=== PATIENT | female | born 1955 | race Caucasian/White ===

== ENCOUNTER 2020-11-13 23:21 | Emergency (ER) | payer MEDICARE, SELFPAY ==
[2020-11-13 23:33] VITALS: BP 98/69; PULSE 125; RESP 22; TEMP 37.4; O2SAT 96; BMI 23.0
--- NOTE | 2020-11-13 23:51 | XRR_ITS ---
PROCEDURE INFORMATION: Exam: XR Chest Exam date and time: 11/13/2020 11:51 PM Age: 65 years old Clinical indication: Cough and shortness of breath; Additional info: SOB, covid precautions TECHNIQUE: Imaging protocol: XR of the chest. Views: 1 view. COMPARISON: No relevant prior studies available. FINDINGS: Lungs: Calcified left hilar nodes and/or mediastinal nodes and/or lung granulomas consistent with old granulomatous disease. Moderately hyperaerated lungs consistent with deep inspiratory effort vs significant reactive airway disease vs moderate COPD . Proximal mild bibasilar opacities most consistent with mild bibasilar pneumonia, left greater than right. Pleural spaces: Unremarkable. No pleural effusion. No pneumothorax. Heart/Mediastinum: Unremarkable. No cardiomegaly. Bones/joints: Unremarkable. XR/XR chest 1V portable [id number] IMPRESSION: 1. Moderately hyperaerated lungs consistent with deep inspiratory effort vs significant reactive airway disease vs moderate COPD . 2. Proximal mild bibasilar opacities most consistent with mild bibasilar pneumonia, left greater than right.
--- NOTE | 2020-11-13 23:54 | ED_ITS ---
HPI - COVID General: Chief Complaint: COVID symptoms Stated Complaint: N\fever\Cough\SOB\ Time Seen by Provider: 11/13/20 23:42 Triage information: Has fever, cough or shortness of breath . Exposure to COVID + person last 14 days History of Present Illness: HPI Narrative: Patient presents with Covid symptoms x8 days. Has had positive Covid contacts. MD complaint: reported COVID exposure and has COVID symptoms Prior covid testing: no COVID 19 common symptoms: positive fever(s), chills, cough, dyspnea, body aches, loss of sense of smell and/or taste and nausea; negative headache(s), throat pain or nasal congestion COVID 19 other sytmptoms: negative chest pain Onset (ago): day(s) (8) Severity: mild Pertinent comorbid conditions: tobacco use/smoking Treatment prior to arrival: other (Natural treatments) COVID Results: SARS-CoV-2 Antigen (Rapid) Negative (Negative) 11/13/20 23:50 11/13/20 Review of Systems Const: Reports: fever(s), chills and body aches Eyes: Denies: change in vision or blurry vision ENMT: Denies: throat pain or nasal congestion Card: Denies: chest pain or dyspnea on exertion Resp: Reports: dyspnea GI: Reports: nausea Musc: Denies: extremity pain Skin/Breast: Denies: rash Neuro: Denies: headache(s) Psych: Denies: anxiety or depression Sebas/Lymph: Denies: easy bruising Physical Exam Const: COMMON NORMALS: no acute distress, average body habitus and patient oriented x3 HENMT: COMMON NORMALS: normocephalic HEAD & SCALP: normal to inspection and normocephalic FACE & SINUS: normal facial exam Eye: COMMON NORMALS: conjunctivae normal GENERAL EYE: appearance normal, both eyes and all related structures CONJUNCTIVA: Yes conjunctivae normal Neck/C-Spine: COMMON NORMALS: no JVD Chest: COMMONS NORMALS: normal inspection of the chest Resp: EFFORT & INSPECTION: Yes able to speak in complete sentences, Yes tachypneic and Yes pursed lip breathing Cardio: COMMON NORMALS: no JVD and regular rhythm RATE: tachycardic RHYTHM: regular rhythm GI: COMMON NORMALS: Normal to inspection, nondistended, normoactive bowel sounds present Extremity: COMMON NORMALS: normal to inspection and full ROM Neuro: COMMON NORMALS: patient oriented x3 Course Vital Signs: Vital signs: Vital Signs Temperature 99.3 F 11/13/20 23:33 Pulse Rate 125 H 11/13/20 23:33 Respiratory Rate 22 H 11/13/20 23:33 Blood Pressure 98/69 11/13/20 23:33 Pulse Oximetry 94 11/14/20 00:02 MDM - COVID MDM Narrative: Medical decision making narrative: Patient is Covid negative. Patient does not appear septic. Temperature 99.3. White count 6.4. X-ray reveals pneumonia. Patient is a smoker. Labs show white count is normal. Patient given antibiotic breathing treatment and steroid sent home with prescription for this follow-up with your primary care provider Monday or Monday. Encouraged to quit smoking. Lab Data: Labs: Lab Results 11/13/20 11/13/20 23:46 23:50 WBC 6.7 10^3/uL 10^3/ uL (4.0-10.0) RBC 4.73 10^6/uL 10^6 /uL (4.1-5.3) Hgb 14.5 g/dL g/dL (11.5-15.3) Hct 42.8 % % (37.0-47.0) MCV 90.5 fl fl (81-99) MCH 30.7 pg pg (28.0-34.0) MCHC 33.9 g/dL g/dL (30.0-36.0) RDW 13.0 % % (12.1-15.1) Plt Count 136 10^3/cmm 10^3 /cmm (130-400) MPV 11.7 fL H fL (7.4-10.4) Neut % (Auto) 55.3 % % Lymph % (Auto) 40.5 % % [place] % (Auto) 3.6 % % Eos % (Auto) 0.0 % % Baso % (Auto) 0.3 % % Neut # (Auto) 3.72 10^3/uL 10^3 /uL (1.8-7.7) Lymph # (Auto) 2.7 10^3/uL 10^3/ uL (0.8-4.8) [place] # (Auto) 0.2 10^3/uL 10^3/ uL (0.2-0.9) Eos # (Auto) 0.0 10^3/uL 10^3/ uL (0.0-0.8) Baso # (Auto) 0.0 10^3/uL 10^3/ uL (0.0-0.1) Nucleated RBC % (a uto) 0 % % Nucleated RBCs # 0.0 /100WBC /100W BC SARS-CoV-2 Ag (Rap id) Negative (Negative) COVID Results: SARS-CoV-2 Antigen (Rapid) Negative (Negative) 11/13/20 23:50 11/13/20 Discharge Plan Discharge Patient Disposition: Home Clinical Impression: Tobacco dependence Pneumonia Qualifiers: Pneumonia type: due to unspecified organism Laterality: bilateral Lung location: lower lobe of lung Qualified Code(s): J18.9 - Pneumonia, unspecified organism Condition: Stable Prescriptions: New prednisone 20 mg tablet 20 mg PO DAILY Qty: 7 RF: 0 azithromycin 250 mg tablet 250 mg PO DAILY 6 Days Qty: 6 RF: 0 ipratropium-albuterol 0.5 mg-3 mg(2.5 mg base)/3 mL solution for nebulization 3 ml inhalation Q6H PRN (Reason: shortness of breath or wheezing) Qty: 90 RF: 0 Discharge Orders: Discharge ED (Routine); Ordered 11/14/20 Ordered By: Les Westbrook Referrals: Griselda Nolen APN [Primary Care Provider] - Discharge Diet: Usual diet Discharge Activity: Increase activity as tolerated Patient Instructions: Pneumonia (ED) Activity Restrictions/Additional Instructions: Follow-up with medical provider as directed. Take medications as prescribed. R eturn to the ER or your medical provider if condition worsens. Please read and understand discharge instructions. If any questions ask please. Follow-up with your primary care provider Monday or Monday to reassess condition. If worsening symptoms happen over the weekend please return here or go to your nearest ER. Coding Level of Care Code ED [facility] [employer] for [facility] Fwsilvia Exam Comprehensive
[2020-11-14 00:02] VITALS: O2SAT 94
[2020-11-14 00:05] LABS: Basophils % 0.3 %; Hematocrit 42.8 % (37.0-47.0); Hemoglobin 14.5 g/dL (11.5-15.3); Lymphocytes # 2.7 10^3/uL (0.8-4.8); Lymphocytes % 40.5 %; Mean Corpuscular HGB Conc 33.9 g/dL (30.0-36.0); Mean Corpuscular Hemoglobin 30.7 pg (28.0-34.0); Mean Corpuscular Volume 90.5 fl (81-99); Mean Platelet Volume 11.7 fL (7.4-10.4); Monocytes # 0.2 10^3/uL (0.2-0.9); Monocytes % 3.6 %; Neutrophils # 3.72 10^3/uL (1.8-7.7); Neutrophils % 55.3 %; Nucleated Red Blood Cells % 0 %; Platelet Count 136 10^3/cmm (130-400); Red Blood Count 4.73 10^6/uL (4.1-5.3); White Blood Count 6.7 10^3/uL (4.0-10.0)
[2020-11-14 00:23] LABS: SARS Covid-2 Antigen Negative (Negative)
[2020-11-14 00:35] LABS: Slide Review Slide Review Perform
[2020-11-14] MEDS: azithromycin 250 mg Tablet 500 MG PO (00:39)
[2020-11-14] MEDS: dexamethasone 10 mg/mL INJ IVP (00:39)
[2020-11-14 00:55] VITALS: PULSE 111; RESP 20; O2SAT 96
[2020-11-14] MEDS: ipratropium-albuterol 3 mL Neb INHALATION (00:55)
[2020-11-14 01:00] VITALS: PULSE 107; RESP 18; O2SAT 98
[2020-11-14 01:39] VITALS: BP 101/68; PULSE 101; RESP 18; O2SAT 98
== END 2020-11-14 01:35 | disposition home or self-care (01) ==
LOC: ER 11-14 00:49
PROVIDERS: Emergency Provider Nurse Practitioner Family; PCP Nurse Practitioner
DX: J18.9 Pneumonia, unspecified organism (principal); F17.210 Nicotine dependence, cigarettes, uncomplicated; Z20.822 Contact with and (suspected) exposure to COVID-19
CPT/HCPCS: 71045; 85025; 87426; 94640; 96374; 99283; J1100; Q0144

== ENCOUNTER 2021-08-06 09:48 | Outpatient (CLI) | payer MEDICARE, SELFPAY ==
--- NOTE | 2021-08-06 10:13 | MM_ITS ---
WS: [id number] Bilateral screening 3D tomosynthesis digital mammogram, 08/06/2021 Clinical Data: SCREEN Comparison: None. Findings: The breast parenchymal pattern shows fibroglandular tissue No spiculated masses or clustered calcific ations are seen. There are no secondary signs of carcinoma. MM/[place] [id number] Impression: 1. Negative bilateral mammogram with no prior exam for review. 2. Recommend annual screening mammograms. BIRADS: 1-Negative FOLLOW UP: 1 Year Follow-up The CAD felt checker was used.
== END 2021-08-06 09:49 | disposition home or self-care (01) ==
PROVIDERS: PCP Family Medicine; Visit Provider Family Medicine
DX: Z12.31 Encounter for screening mammogram for malignant neoplasm of breast (principal)
CPT/HCPCS: 77063; 77067

== ENCOUNTER → 2022-03-30 15:01 | Outpatient (BNVA) | payer MEDICARE, SELFPAY | PROVIDERS: PCP Family Medicine; Visit Provider Family Medicine | DX: J44.9 Chronic obstructive pulmonary disease, unspecified (principal); J41.0 Simple chronic bronchitis; R00.0 Tachycardia, unspecified; Z13.1 Encounter for screening for diabetes mellitus; Z13.6 Encounter for screening for cardiovascular disorders; M54.6 Pain in thoracic spine; M54.50 Low back pain, unspecified; M79.604 Pain in right leg; M79.605 Pain in left leg; M62.838 Other muscle spasm; F41.1 Generalized anxiety disorder; G89.29 Other chronic pain | CPT/HCPCS: 80053; 80061; 83735; 84443; 85025 ==

== ENCOUNTER → 2022-04-21 14:18 | Outpatient (BNVA) | payer MEDICARE, SELFPAY | PROVIDERS: PCP Family Medicine; Visit Provider Family Medicine | DX: J41.0 Simple chronic bronchitis (principal); J44.9 Chronic obstructive pulmonary disease, unspecified; R00.0 Tachycardia, unspecified; Z13.6 Encounter for screening for cardiovascular disorders; Z13.1 Encounter for screening for diabetes mellitus | CPT/HCPCS: 80053; 80061; 83735; 84443; 85025 ==

== ENCOUNTER → 2022-12-13 13:34 | Outpatient (BNVA) | payer MEDICARE, SELFPAY | PROVIDERS: PCP Family Medicine; Visit Provider Family Medicine | DX: F17.210 Nicotine dependence, cigarettes, uncomplicated (principal); Z12.2 Encounter for screening for malignant neoplasm of respiratory organs; Z00.00 Encounter for general adult medical examination without abnormal findings; Z71.89 Other specified counseling; Z12.11 Encounter for screening for malignant neoplasm of colon; E87.1 Hypo-osmolality and hyponatremia; J44.9 Chronic obstructive pulmonary disease, unspecified; J41.0 Simple chronic bronchitis; F41.1 Generalized anxiety disorder; R00.0 Tachycardia, unspecified | CPT/HCPCS: 80048 ==

== ENCOUNTER 2022-12-19 11:32 | Outpatient (CLI) | payer MEDICARE, SELFPAY ==
--- NOTE | 2022-12-19 12:15 | CT_ITS ---
WS: [id number] LDCT LUNG CANCER SCREENING HISTORY: F17.210 - Nicotine dependence, cigarettes, uncomplicated TECHNIQUE: Axial imaging performed from the apices to 1 cm below the costophrenic angles. Coronal and sagittal reformats are submitted with axial MIP series. All CT scans at [facility] use at least one of these dose optimization techniques: automated exposure control; mA and/or kV adjustment per patient size (includes targeted exams where dose is matched to clinical indication); or iterativ e reconstruction. DLP: 50.01 mGy.cm DIvol: Mean CTDIvol: 0.80 (mGy) COMPARISON: None available. Diagnostic quality: Satisfactory Lungs: Moderate pulmonary hyperexpansion and centrilobular emphysema. No mass, nodule, no pneumonia o r endobronchial lesions. Benign calcified granuloma LEFT upper lobe. Heart: Normal size heart with no pericardial effusion.. Other findings: Mild atherosclerosis aorta. Normal sized pulmonary artery. No adenopathy. Prior maldonado cystectomy. IMPRESSION: CT/CT lung screening [id number] LUNG-RADS: 1-Negative FOLLOW UP: 12 Month: Continue annual screening with LDCT OTHER FINDINGS (S MODIFIER): None.
== END 2022-12-19 11:33 | disposition home or self-care (01) ==
LOC: RAD 11:32
PROVIDERS: PCP Family Medicine; Visit Provider Family Medicine
DX: Z12.2 Encounter for screening for malignant neoplasm of respiratory organs (principal); F17.210 Nicotine dependence, cigarettes, uncomplicated
CPT/HCPCS: 71271

== ENCOUNTER → 2023-12-18 13:59 | Outpatient (BNVA) | payer MEDICARE, SELFPAY | PROVIDERS: PCP Family Medicine; Visit Provider Family Medicine | DX: Z13.1 Encounter for screening for diabetes mellitus (principal); Z13.6 Encounter for screening for cardiovascular disorders; J41.0 Simple chronic bronchitis | CPT/HCPCS: 80053; 80061; 85025 ==

== ENCOUNTER → 2023-12-25 11:09 | Outpatient (BNVA) | payer MEDICARE, SELFPAY | PROVIDERS: PCP Family Medicine; Referring Provider Family Medicine; Visit Provider Student in an Organized Health Care Education/Training Program | DX: Z12.11 Encounter for screening for malignant neoplasm of colon (principal) | CPT/HCPCS: 99024; 99204 ==

== ENCOUNTER 2023-12-27 10:36 | Day surgery (SDC) | payer MEDICARE, SELFPAY ==
[2023-12-27 11:00] VITALS: BP 98/73; PULSE 87; RESP 18; TEMP 36.8; O2SAT 93
[2023-12-27 11:02] VITALS: BMI 24.7
[2023-12-27] MEDS: sodium chloride 0.9% 1,000 ML 30 ML IV (11:12)
--- NOTE | 2023-12-27 11:51 | W.PM.OPSUD ---
Surgery/Procedure H&P Update DATE OF PROCEDURE: December 27, 2023 DATE H&P PERFORMED: 12/25/23 H&P UPDATE INFORMATION: I have reviewed H&P completed within last 30 days, I have examined patient prior to procedure and No changes to prior documentation PLANNED PROCEDURE: Operation Date: 12/27/23 12:00 Proposed Procedures p Colonoscopy 19236, G0121, Z12.11(Not Applicable) - Macho Wong MD
--- NOTE | 2023-12-27 12:23 | ANES.PREANE2 ---
Pre-Anesthetic Assessment Height/Weight: Height 1.6 m Weight 63.503 kg Temp Pulse Resp BP Pulse Ox O2 Del Method 98.3 F 87 18 98/73 93 Room Air 12/27/23 11:00 12/27/23 11:00 12/27/23 11:00 12/27/23 11:00 12/27/23 11:00 12/27/23 11:00 Operation Date: 12/27/23 12:00 Proposed Procedures p Colonoscopy 26974, G0121, Z12.11(Not Applicable) - Macho Wong MD Familial anesthetic complications: Daughter had nerve block complication (sounds like potential intravascular injection or total spinal) Was Beta Pranav taken within 24 hours: N/A Was Clonidine taken within 24 hours: N/A Last intake: Intake Last Liquid Date 12/26/23 Last Liquid Time 08:00 Last Solid Date 12/25/23 Last Solid Time 14:00 Social Tobacco and No alcohol Exam alert, oriented x 3, clear to auscultation bilaterally and regular rate & rhythm Airway Mallampati: Class II Dentition: other (no teeth) Pulmonary Chronic Obstructive Pulmonary Disease Anesthetic Plan ASA status: 2 Anesthesia: MAC Risk of > 500 ml blood loss (7ml/kg in children): No Medications/Allergies Home Medications Medication Instructions Recorded Confirmed Last Taken Type ipratropium 0.5 mg-albuterol 3 mg 3 ml inhalation Q6H PRN wheezing 09/12/23 12/27/23 12/25/23 Rx (2.5 mg base)/3 mL nebulization #90 mL soln tizanidine 2 mg tablet 2 mg PO Q8H PRN muscle spasticity 09/12/23 12/27/23 1 Month Ago Rx #30 tabs ~11/26/23 umeclidinium 62.5 mcg-vilanterol See Rx Instructions .Route 09/12/23 12/27/23 12/27/23 08:30 Rx 25 mcg/actuation powdr for .COMPLEX #60 ea inhalation (Anoro Ellipta) albuterol sulfate 90 mcg/actuation See Rx Instructions .Route 11/27/23 12/27/23 12/25/23 Rx aerosol inhaler .COMPLEX #6.7 grams ondansetron 8 mg disintegrating 8 mg PO ONCE PRN nausea and 12/25/23 12/27/23 12/27/23 08:30 Rx tablet vomiting #7 tabs Allergies Allergy/AdvReac Type Severity Reaction Status Date / Time Sulfa (Sulfonamide Allergy ALGY-Hives Verified 12/27/23 11:06 Antibiotics) vitamin E (d-alpha Allergy ALGY-Hives Verified 12/27/23 11:06 tocopherol) Current Medications Generic Name Dose Route Start Last Admin Trade Name Freq PRN Reason Stop Dose Admin Sodium Chloride 1,000 mls @ 30 mls/hr 12/27/23 11:15 12/27/23 11:12 Sodium Chloride 0.9% IV 12/28/23 11:14 30 mls/hr .Q24H MAXI Administration PFSH Anesthesia Medical History (Updated 12/25/23 @ 11:22 by SHERON Durand) History of lower leg fracture right History of ankle fracture right ankle replacement Surgical History (Updated 12/25/23 @ 11:22 by SHERON Durand) History of ankle surgery Hx laparoscopic cholecystectomy History of hysterectomy Family History (Updated 12/25/23 @ 11:[address]) Mother Colon cancer Breast cancer Brother Cancer Grandfather Cancer leukemia Father Cancer skin Social History Smoking and tobacco/nicotine status: current every day tobacco/nicotine user cigarettes Packs smoked per day: 0.75 Data Anesthesia Cardiac Studies: No Data to Display
[2023-12-27 12:57] VITALS: BP 124/75; PULSE 82; RESP 18; TEMP 36.1; O2SAT 97
[2023-12-27 13:17] VITALS: BP 120/82; PULSE 78; RESP 18; O2SAT 98
[2023-12-27 13:45] VITALS: BP 109/78; PULSE 84; RESP 18; O2SAT 95
--- NOTE | 2023-12-27 13:46 | PC.NURSE ---
pt complaining of gas pain . abdomen soft and active bowel sounds
--- NOTE | 2023-12-27 13:50 | ANE.PACU2 ---
Inpatient post-anesthesia follow up: Airway intact: Yes Vital signs: Temperature 97 F Pulse Rate 84 Respiratory Rate 18 Blood Pressure 109/78 Pulse Oximetry 95 Oxygen Delivery Me thod Room Air Oxygen Flow Rate Fraction of Inspir ed Oxygen Hydration adequate: Yes Nausea and vomiting: No Pain level: 1 Mental status: Baseline
== END 2023-12-27 13:50 | disposition home or self-care (01) ==
PROVIDERS: PCP Family Medicine; Visit Provider Student in an Organized Health Care Education/Training Program
PROC: 0DJD8ZZ Inspection of Lower Intestinal Tract, Via Natural or Artificial Opening Endoscopic (ICD-10-PCS; CPT 45378; principal; 2023-12-27 12:00)
DX: Z12.11 Encounter for screening for malignant neoplasm of colon (principal); K57.30 Diverticulosis of large intestine without perforation or abscess without bleeding; K64.4 Residual hemorrhoidal skin tags; D12.2 Benign neoplasm of ascending colon; D12.5 Benign neoplasm of sigmoid colon; D12.8 Benign neoplasm of rectum; F17.210 Nicotine dependence, cigarettes, uncomplicated; J44.9 Chronic obstructive pulmonary disease, unspecified
CPT/HCPCS: 45380; 45381; 88305; J2704; J7030

== ENCOUNTER → 2024-01-11 11:35 | Outpatient (BNVA) | payer MEDICARE, SELFPAY | PROVIDERS: PCP Family Medicine; Visit Provider Student in an Organized Health Care Education/Training Program | DX: Z09 Encounter for follow-up examination after completed treatment for conditions other than malignant neoplasm (principal) | CPT/HCPCS: 99214 ==

== ENCOUNTER → 2024-12-30 13:40 | Outpatient (BNVA) | payer MEDICARE, SELFPAY | PROVIDERS: PCP Family Medicine; Visit Provider Family Medicine | DX: J41.0 Simple chronic bronchitis (principal); Z13.6 Encounter for screening for cardiovascular disorders | CPT/HCPCS: 80048; 80061 ==